=== PATIENT | male | born 1940 ===

== ENCOUNTER 2018-07-26 07:00 | Day surgery (SDC) | payer OTHER ==
[~2018-07-26] VITALS: Ht 177.8 cm; Wt 70.3 kg
[~2018-07-26 07:00] MED LIST: ASACOL HD800 MG PO; FOLIC ACID PO; HYOSCYAMINE0.125 M2 PO; TAMS0.4C PO; [UNRECOGNIZED DRUG - OTHER] IM; [UNRECOGNIZED DRUG - OTHER] PO; [UNRECOGNIZED DRUG - OTHER] PO
== END 2018-07-27 10:00 | disposition home or self-care (01) ==
LOC: EDBD → EDSEX → CIR.AMB 07:00 → SURH 08:20 → O/R 08:20 → SURH 15:53 → CIR.AMB 07-27 10:00 → O/R 07-27 13:46 → SURH 07-27 13:46 → EDSTATUS 07-29 08:30 → CIR.AMB 07-29 14:20 → EDSTATUS 07-29 14:55 → SURH 07-29 14:56
DX: C67.0 Malignant neoplasm of trigone of bladder (principal); N20.1 Calculus of ureter; R31.0 Gross hematuria; R33.8 Other retention of urine

== ENCOUNTER 2018-08-12 06:32 | Inpatient (IN) | payer OTHER ==
[~2018-08-12] VITALS: Ht 177.8 cm; Wt 68.0 kg
== END 2018-08-14 19:44 | disposition home or self-care (01) | DRG 660 ==
LOC: ER 06:32 → SEC-K 07:50 → SURG 07:50
PROVIDERS: ADMIT Urology
PROC: 0VT08ZZ Resection of Prostate, Via Natural or Artificial Opening Endoscopic (ICD-10-PCS; 2018-08-12)
PROC: 0TP98DZ Removal of Intraluminal Device from Ureter, Via Natural or Artificial Opening Endoscopic (ICD-10-PCS; principal; 2018-08-12 11:30)
PROC: 0T788DZ Dilation of Bilateral Ureters with Intraluminal Device, Via Natural or Artificial Opening Endoscopic (ICD-10-PCS; 2018-08-12 11:30)
DX: R31.0 Gross hematuria (principal); D62 Acute posthemorrhagic anemia; C67.0 Malignant neoplasm of trigone of bladder; N13.39 Other hydronephrosis; N40.1 Benign prostatic hyperplasia with lower urinary tract symptoms; R33.8 Other retention of urine; Z89.021 Acquired absence of right finger(s)

== ENCOUNTER 2019-03-18 10:30 | Outpatient (CLI) | payer OTHER | END 2019-03-18 10:44 | disposition home or self-care (01) | LOC: NUCLEAR 10:30 | DX: I65.29 Occlusion and stenosis of unspecified carotid artery (principal) ==